=== PATIENT | male | born 1960 | race Caucasian/White ===

== ENCOUNTER → 2017-12-26 | Outpatient (CLI) | payer BC ==
[2017-12-26] VITALS (8 sets, daily range): BP systolic 115–132; BP diastolic 62–83
[~2017-12-26] VITALS: Ht 180.3 cm; Wt 95.3 kg
[~2017-12-26] MED LIST: AMITRIPTYLINE H25 M2 PO; AMLODIPINE BESYL5 M1 PO; APAP500 PO; ASPIR 8181 MG PO; BENTYL 20 MG TA20 M1 PO; CARVEDILOL12.5 MG PO; CIPRO500 MG PO; COREG25 MG PO; DEPAKOTE ER500 MG PO; EFFIENT10 MG PO; FLUOXETINE HCL40 MG PO; HYDROCODON-ACE1 EAC8 PO; LIPITOR20 MG PO; LISINOPRIL20 MG PO; NEURONTIN300 MG PO; NITROSTAT0.4 M1 SUBLING; NORVASC5 M1 PO; OMEPRAZOLE40 MG PO; RANEXA500 MG PO; REQUIP3 MG PO; ZOFRAN ODT4 MG PO
[2017-12-26 09:02] LABS: CALCIUM 9.4 mg/dL (8.5-10.1); CREATININE 1.1 mg/dL (0.6-1.3); POTASSIUM 3.7 mmol/L (3.5-5.1)
[2017-12-26 09:06] LABS: ALBUMIN 3.8 g/dL (3.4-5.0); TOTAL BILIRUBIN 0.7 mg/dL (<0.1-1.0); TOTAL PROTEIN 7.1 g/dL (6.4-8.2)
== END ==
LOC: M.CT 07:41
PROVIDERS: Radiology Diagnostic Radiology
DX: I25.10 Atherosclerotic heart disease of native coronary artery without angina pectoris (principal); I25.82 Chronic total occlusion of coronary artery; R06.09 Other forms of dyspnea; R07.9 Chest pain, unspecified

== ENCOUNTER → 2018-01-07 | Outpatient (CLI) | payer BC ==
--- NOTE | 2018-01-07 18:04 | 2DMMODE ---
[place] [address] 2 D/M-MODE ECHOCARDIOGRAM Name: RAVINDRARADHAMARVIN TERRY Room: [facility]#: [id number] Admission: 01/07/18 Attend Phys: Norberto Farrell, Discharge: Date of : 58 Date of Service: 01/07/18 1804 Report #: [id number] THIS REPORT FOR: //name// APPROVED REPORT Study performed: 01/07/2018 14:12:04 EXAM: Comprehensive 2D, Doppler, and color-flow Echocardiogram Patient Location: Out-Patient Status: routine BSA: 2.17 HR: 72 bpm BP: 148/100 mmHg Other Information Study Quality: Good Indications Dyspnea CAD Chest Pain 2D Dimensions LVEF(%): 66.06 (>50%) IVSd: 12.73 (7-11mm) LVOT Diam: 19.97 (18-24mm) LVDd: 42.86 mm PWd: 9.49 (7-11mm) Ascending Ao: 31.99 (22-36mm) LVDs: 27.39 (25-40mm) Aortic Root: 30.20 mm Cazares's LVEF: 66.06 % Volumes Left Atrial Volume (Systole) LA ESV Index: 14.10 mL/m2 Aortic Valve AoV Peak Hugo.: 1.28 m/s AO Peak Gr.: 6.59 mmHg LVOT Max P.80 mmHg AO Mean Gr.: 3.10 mmHg LVOT Mean P.65 mmHg LVOT Max V: 1.20 m/s AO V2 VTI: 21.81 cm LVOT Mean V: 0.74 m/s CRISTHIAN (VTI): 3.35 cm2 LVOT V1 VTI: 23.32 [place] [address] 2 D/M-MODE ECHOCARDIOGRAM Name: RADHA WAITE Room: [facility]#: [id number] Admission: 01/07/18 Attend Phys: Norberto Farrell, Discharge: Date of : 58 Date of Service: 01/07/18 1804 Report #: [id number] E/A Ratio: 0.62 MV Decel. Time: 294.22 ms MV E Max Hugo.: 0.56 m/s MV PHT: 85.32 ms MVA (PHT): 2.58 cm2 TDI E/Lateral E': 6.22 E/Medial E': 7.00 Medial E' Hugo.: 0.08 m/s Lateral E' Hugo.: 0.09 m/s Pulmonary Valve PV Peak Hugo.: 0.87 m/s PV Peak Gr.: 3.05 mmHg Tricuspid Valve RAP Estimate: 5.00 mmHg TR Peak Gr.: 18.30 mmHg RVSP: 23.30 mmHg PA Pressure: 23.30 mmHg Left Ventricle The left ventricle is normal size. There is normal LV segmental wall motion. There is normal left ventricular wall thickness. Left ventricular systolic function is normal. The left ventricular ejection fraction is within the normal range. LVEF is 60-65%. Grade I - abnormal relaxation pattern. Right Ventricle The right ventricle is normal size. The right ventricular systolic function is normal. Atria The left atrium size is normal. The right atrium size is normal. Aortic Valve The aortic valve is normal in structure. No aortic regurgitation is present. There is no aortic valvular stenosis. Mitral Valve Mild mitral annular calcification. Trace mitral regurgitation. No evidence of mitral valve stenosis. Tricuspid Valve The tricuspid valve is normal in structure. [place] [address] 2 D/M-MODE ECHOCARDIOGRAM Name: RADHA WAITE Room: [facility]#: [id number] Admission: 01/07/18 Attend Phys: Norberto Farrell, Discharge: Date of : 58 Date of Service: 01/07/18 1804 Report #: [id number] Pulmonic Valve The pulmonary valve is normal in structure. There is no pulmonic valvular regurgitation. Great Vessels The aortic root is normal in size. IVC is normal in size and collapses with >50% inspiration Pericardium There is no pericardial effusion. <Conclusion> The left ventricle is normal size. There is normal left ventricular wall thickness. Left ventricular systolic function is normal. The left ventricular ejection fraction is within the normal range. LVEF is 60-65%. Grade I - abnormal relaxation pattern. The right ventricle is normal size. The left atrium size is normal. The aortic valve is normal in structure. Mild mitral annular calcification. Trace mitral regurgitation. No evidence of mitral valve stenosis. The tricuspid valve is normal in structure. Mild tricuspid regurgitation. IVC is normal in size and collapses with >50% inspiration There is no pericardial effusion. There is normal LV segmental wall motion. <ELECTRONICALLY SIGNED> By: Redd Neil MD, FACC 01/07/181803 03 03 Redd Neil MD, FACC /INF
== END ==
LOC: M.CRD 13:36
DX: I07.1 Rheumatic tricuspid insufficiency (principal); I34.8 Other nonrheumatic mitral valve disorders; I25.10 Atherosclerotic heart disease of native coronary artery without angina pectoris

== ENCOUNTER → 2019-12-02 | Outpatient (CLI) | payer BC ==
--- NOTE | 2019-12-02 12:14 | 2DMMODE ---
[place] [address] 2 D/M-MODE ECHOCARDIOGRAM Name: RADHA WAITE Room: [facility]#: [id number] Admission: 12/02/19 Attend Phys: Norberto Farrell, Discharge: Date of : 58 Date of Service: 12/02/19 1212 Report #: [id number] THIS REPORT FOR: cc: Alejandro Boyd Brad DO Liston, Michael J. MD [facility] ~ APPROVED REPORT Study performed: 12/02/2019 11:07:30 EXAM: Comprehensive 2D, Doppler, and color-flow Echocardiogram Patient Location: Out-Patient BSA: 2.11 HR: 77 bpm BP: 131/77 mmHg Other Information Study Quality: Good Indications Dyspnea Chest Pain 2D Dimensions IVSd: 11.51 (7-11mm) LVOT Diam: 20.19 (18-24mm) LVDd: 40.76 mm PWd: 11.08 (7-11mm) Ascending Ao: 32.02 (22-36mm) LVDs: 24.53 (25-40mm) Aortic Root: 31.44 mm Volumes Left Atrial Volume (Systole) LA ESV Index: 22.40 mL/m2 Aortic Valve AoV Peak Hugo.: 1.28 m/s AO Peak Gr.: 6.59 mmHg LVOT Max P.38 mmHg AO Mean Gr.: 3.79 mmHg LVOT Mean P.03 mmHg LVOT Max V: 1.26 m/s AO V2 VTI: 28.00 cm LVOT Mean V: 0.79 m/s CRISTHIAN (VTI): 3.02 cm2 LVOT V1 VTI: 26.41 [place] [address] 2 D/M-MODE ECHOCARDIOGRAM Name: RADHA WAITE Room: [facility]#: [id number] Admission: 12/02/19 Attend Phys: Norberto Farrell, Discharge: Date of : 58 Date of Service: 12/02/19 1212 Report #: [id number] E/A Ratio: 0.97 MV Decel. Time: 180.26 ms MV E Max Hugo.: 0.83 m/s MV PHT: 52.28 ms MVA (PHT): 4.21 cm2 TDI E/Lateral E': 9.22 E/Medial E': 11.86 Medial E' Hugo.: 0.07 m/s Lateral E' Hugo.: 0.09 m/s Pulmonary Valve PV Peak Hugo.: 0.90 m/s PV Peak Gr.: 3.23 mmHg Tricuspid Valve RAP Estimate: 5.00 mmHg TR Peak Gr.: 20.45 mmHg RVSP: 25.45 mmHg PA Pressure: 25.45 mmHg Left Ventricle The left ventricle is normal size. There is normal LV segmental wall motion. There is normal left ventricular wall thickness. Left ventricular systolic function is normal. LVEF is 60-65%. Transmitral Doppler flow pattern suggests impaired LV relaxation. Right Ventricle The right ventricle is normal size. The right ventricular systolic function is normal. Atria Left atrium is mildly dilated. The right atrium size is normal. Aortic Valve The aortic valve is normal in structure. No aortic regurgitation is present. There is no aortic valvular stenosis. Mitral Valve Mild mitral annular calcification. Trace mitral regurgitation. No evidence of mitral valve stenosis. Tricuspid Valve The tricuspid valve is normal in structure. Trace tricuspid regurgitation. The RVSP is 30-35 [place] [address] 2 D/M-MODE ECHOCARDIOGRAM Name: RAVINDRARADHA Room: [facility]#: [id number] Admission: 12/02/19 Attend Phys: Norberto Farrell, Discharge: Date of : 58 Date of Service: 12/02/19 1212 Report #: [id number] The pulmonary valve is normal in structure. There is no pulmonic valvular regurgitation. Great Vessels The aortic root is normal in size. IVC is normal in size and collapses >50% with inspiration. Pericardium There is no pericardial effusion. <Conclusion> Trace tricuspid regurgitation. The RVSP is 30-35 mmHg. Trace mitral regurgitation. IVC is normal in size and collapses >50% with inspiration. <ELECTRONICALLY SIGNED> By: Blaise Perez MD, FACC 12/02/19 121 11 11 Blaise Perez MD, FACC /INF
--- NOTE | 2019-12-02 13:25 | CARDNUC ---
[place] [address] CARDIAC NUCLEAR IMAGING REPORT Name: RADHA WAITE Room: [facility]#: [id number] Admission: 12/02/19 Attend Phys: Norberto Farrell, Discharge: Date of : 58 Date of Service: 12/02/19 1323 Report #: [id number] THIS REPORT FOR: cc: Alejandro Boyd,Blaise Dan MD [facility] ~ APPROVED REPORT Imaging Protocol: Stress Tc-99m/Rest Tc-99m 1 day Study performed: 12/02/2019 08:00:00 Indication: Chest pain, Dyspnea, Dizziness, Palpitations. Patient Location: Out-Patient Stress Tech: Lola Rodriguez Stress Nurse: Lisandra Damon RN Ht: 5 ft 11 in Wt: 201 lbs BSA: 2.11 m2 BMI: 28.03 Medical History Medical History: Angina, CAD s/p [place], CAD s/p stent, Chronic total occlusion of carotid artery, Dizziness, PND, Palpitations, near syncope, Dyspnea, HTN, HLD, Past Smoker, Weakness/fatigue. Medications: Amlodipine, Atorvastatin, Carvedilol, Fenofibrate, Ranexa, Lisinopril, (?Diltiazem? patient unsure) Allergies: Compazine, Toradol. Cardiac Risk Factors: Age, FHX of CAD, HTN, Hyperlipidemia, SOB, Past Smoker, Chest pain, Palpitations. Previous Cardiac Procedures: Myocardial infarction, PCI. Pretest Chest Pain Characteristics: No chest pain Exercise History: Sedentary Physical Disabilities: Weakness/fatigue, dyspnea. Meds Held (24 hrs): Carvedilol. Resting Data Rest SPECT myocardial perfusion imaging was performed in supine position 30 minutes following the intravenous injection of 9.2 mCi of Tc-99m Sestamibi. Time of rest injection: 08:25 The images were gated to evaluate regional wall motion and calculate left ventricular ejection fraction. Administration Route: IV Administration Site: [place] [address] CARDIAC NUCLEAR IMAGING REPORT Name: RADHA WAITE Room: [facility]#: [id number] Admission: 12/02/19 Attend Phys: Norberto Farrell, Discharge: Date of : 58 Date of Service: 12/02/19 1323 Report #: [id number] Pharmacologic Stress Pharmacologic stress test was performed by injecting Regadenoson 0.4 mg IV push over 10-15 seconds immediately followed by the intravenous injection of 29.9 mCi of Tc-99m Sestamibi. Time of stress injection: 10:55 Administration Route: IV Administration Site: Left Heart Rate at time of stress injection: 106 bpm. Gated Stress SPECT was performed 40 minutes after stress injection. The images were gated to evaluate regional wall motion and calculate left ventricular ejection fraction. Prone imaging was performed. Stress Test Details Stress Test: Pharmacologic stress was paired with low level exercise. Reason for pharmacologic stress test: Weakness/Fatigue, Dyspnea.. 60 mg caffeine given for Nausea/Vomiting.. HR Max Heart Rate (APMHR): 160 bpm Resting HR: 67 bpm Target HR (85% APMHR): 136 bpm Max HR Achieved: 106 bpm % of APMHR: 66 Recovery HR: 80 bpm BP Resting BP: 131/77 mmHg Max BP: 233/91 mmHg Recovery BP: 184/91 mmHg ECG Resting ECG: Sinus Rhythm Stress ECG: Sinus Tachycardia ST Change: Horizontal ST depression Maximum ST Deviation: 0.5 mm Arrhythmia: None Recovery ECG: Sinus Rhythm Recovery ST Change: Horizontal ST depression Recovery ST Deviation: 0.5 mm Recovery Arrhythmia: None Clinical Reason for Termination: Completed protocol Stress Symptoms: Nausea, Emesis, Headache, Weakness., None, [place] [address] CARDIAC NUCLEAR IMAGING REPORT Name: RADHA WAITE Room: [facility]#: [id number] Admission: 12/02/19 Attend Phys: Norberto Farrell, Discharge: Date of : 58 Date of Service: 12/02/19 1323 Report #: [id number] Exercise duration: 4 min 00 sec Exercise capacity: 2.30 METs The patient tolerated Lexiscan infusion protocol without significant cardiac complaints. Nurse Comments A 59 year old male presented for a walking Lexiscan r/t chest pain, dyspnea, dizziness, palpitations. Test tolerated with some N/V requiring 60 Mg IV caffeine during recovery, effective. Patient was escorted by staff to Nuclear Medicine for imaging. Patient exhibited continued HTN but stated he felt better at that time. Patient was educated to take his B/P medications promptly upon returning home. Stress ECG Conclusion Baseline twelve-lead EKG shows sinus rhythm with some subtle T wave inversion in the inferolateral leads. EKGs obtained during and post Lexiscan infusion show sinus rhythm and sinus tachycardia with 0.[address] segment depression noted in the anterolateral leads. There were no significant stress-induced arrhythmias. Study Quality Study: Fair Artifact: Moderate Diaphragmatic artifact Study Data At rest, the left ventricular ejection fraction was 77%.. Post stress, the left ventricular ejection was 76%.. TID = 0.96. Perfusion Perfusion images obtained in the supine position show a large in size moderate intensity defect involving the inferior wall that resolves only partially with post-rest prone imaging. No reversible defects are identified. Review of the raw data suggest diaphragmatic attenuation artifact. Wall Motion Normal left ventricular wall motion. Nuclear Conclusion ECG Findings: non-diagnostic Clinical Findings: negative for ischemia Nuclear Findings: negative for ischemia Exercise Capacity: not assessed Left Ventricular Function: [place] [address] CARDIAC NUCLEAR IMAGING REPORT Name: RAVINDRARADHAMARVIN TERRY Room: [facility] Da Silva#: [id number] Admission: 12/02/19 Attend Phys: Norberto Farrell, Discharge: Date of : 58 Date of Service: 12/02/19 1323 Report #: [id number] Risk Study: low Perfusion images show evidence of diaphragmatic attenuation artifact. There were no reversible defects identified. Global LV systolic function is normal on gated studies without wall motion abnormality. This is a low risk study. <Conclusion> Baseline twelve-lead EKG shows sinus rhythm with some subtle T wave inversion in the inferolateral leads. EKGs obtained during and post Lexiscan infusion show sinus rhythm and sinus tachycardia with 0.[address] segment depression noted in the anterolateral leads. There were no significant stress-induced arrhythmias. <ELECTRONICALLY SIGNED> By: Blaise Perez MD, FACC 12/02/19 1323 1323 1323 Blaise Perez MD, FACC /INF
== END ==
LOC: M.CRD 11-18 16:12 → M.NUC 07:55 → M.CRD 09:00 → M.NUC 14:00 → M.CRD 12-03 09:00
DX: I34.0 Nonrheumatic mitral (valve) insufficiency (principal); I25.10 Atherosclerotic heart disease of native coronary artery without angina pectoris; R06.09 Other forms of dyspnea; R07.9 Chest pain, unspecified; I25.2 Old myocardial infarction; I25.82 Chronic total occlusion of coronary artery; Z98.61 Coronary angioplasty status

== ENCOUNTER → 2020-08-06 | Outpatient (CLI) | payer BC ==
[2020-08-06] VITALS (11 sets, daily range): BP systolic 104–137; BP diastolic 67–88
[~2020-08-06] VITALS: Ht 180.3 cm; Wt 95.3 kg
[~2020-08-06] MED LIST changes: +ASPIRIN325 PO; +CARVEDILOL25 MG PO; +DILTIAZEM ER180 M2 PO; +FENOFIBRATE160 MG PO; -FLUOXETINE HCL40 MG PO; +PLAVIX 75 MG TA75 MG PO; +PROZAC20 M1
[2020-08-06 08:19] LABS: HEMATOCRIT 41.4 % (42.0-52.0); HEMOGLOBIN 14.1 gm/dL (14.0-18.0); MCH 30.5 pg (26.0-34.0); MCHC 34.2 g/dL (28.0-37.0); MCV 89.2 fL (80.0-100.0); MPV 9.2 fl. (7.2-11.1); RBC 4.64 mil/uL (4.50-6.00); WBC 9.9 thou/uL (4.0-11.0)
[2020-08-06 08:25] LABS: ANION GAP 12 mmol/L (7-16); BUN 19 mg/dL (7-18); CALCIUM 9.2 mg/dL (8.5-10.1); CHLORIDE 105 mmol/L (98-107); CO2 25 mmol/L (21-32); CREATININE 1.3 mg/dL (0.6-1.3); GLUCOSE 115 mg/dL (70-99); POTASSIUM 3.7 mmol/L (3.5-5.1); SODIUM 142 mmol/L (136-145)
[2020-08-06 08:29] LABS: ALBUMIN 3.8 g/dL (3.4-5.0); ALKALINE PHOSPHATASE 89 U/L (46-116); APTT 22.6 Seconds (25.0-31.3); CHOLESTEROL 150 mg/dL (<200); HDL CHOLESTEROL 31 mg/dL (>40); LDL CHOLESTEROL 84 mg/dL (<100); SGOT 16 U/L (15-37); SGPT 28 U/L (30-65); TC:HDL 4.8 Ratio (Not establshd); TOTAL BILIRUBIN 0.4 mg/dL (<0.1-1.0); TOTAL PROTEIN 6.9 g/dL (6.4-8.2); TRIGLYCERIDE 177 mg/dL (<150); VLDL 35 mg/dL (<40)
[2020-08-06 08:30] LABS: SERUM ASSESSMENT Clear
[2020-08-06 13:21] LABS: HEMOGLOBIN 13.2 gm/dL (14.0-18.0); MCH 31.1 pg (26.0-34.0); MCHC 34.6 g/dL (28.0-37.0); MPV 8.7 fl. (7.2-11.1); RBC 4.23 mil/uL (4.50-6.00); WBC 7.3 thou/uL (4.0-11.0)
[2020-08-06 13:40] LABS: ANION GAP 6 mmol/L (7-16); BUN 16 mg/dL (7-18); CALCIUM 8.6 mg/dL (8.5-10.1); CHLORIDE 109 mmol/L (98-107); CO2 26 mmol/L (21-32); CREATININE 1.1 mg/dL (0.6-1.3); GLUCOSE 102 mg/dL (70-99); SODIUM 141 mmol/L (136-145); TROPONIN-I LEVEL <0.06 ng/mL (<0.06)
--- NOTE | 2020-08-06 13:46 | EKG ---
[place] [address] ELECTROCARDIOGRAM REPORT Name: RADHA WAITE EDNIKOS Room: [facility]#: [id number] Admission: 08/06/20 Attend Phys: Norberto Farrell, Discharge: Date of : 58 Date of Service: 08/06/20 1229 Report #: [id number] THIS REPORT FOR: //name// [facility] Test Date: 2020-08-06 Test Time: 12:29:32 Pat Name: RADHA WAITE Department: Room: Gender: Farm Hand: : 1960 Requested By: Karson Aleman Order Number: [id number] Aureliano MD: Karson Aleman Measurements Intervals [place] Rate: 57 P: 18 WV: 147 QRS: 38 QRSD: 106 T: 1 QT: 457 QTc: 445 Interpretive Statements Sinus rhythm Abnormal R-wave progression, early transition Compared to ECG 12/04/2014 08:51:09 no change Electronically Signed On 08-06-2020 13:46:14 MACHINE PECAN GATHERER by Karson Aleman [email or web address] <ELECTRONICALLY SIGNED> By: Karson Aleman MD, [facility] 08/06/20 1346 1229 1229 Karson Aleman MD, [facility] /EPI
--- NOTE | 2020-08-06 17:31 | CARD ---
[address] [address] CARDIAC CATH REPORT Name: RADHA WAITE Room: [facility] Maryann.#: [id number] Admission: 08/06/20 Attend Phys: Norberto Farrell MD, Discharge: Date of : 58 Report #: [id number] THIS REPORT FOR: cc: Oliver,Alejandro DO Mouse,Alejandro DO ~ Karson Aleman MD [facility] APPROVED REPORT Study performed: 08/06/2020 08:47:41 Patient Details Patient Status: Out-Patient Room #: The patient is a 59 year-old male Event Personnel Karson Aleman Scientific Systems Analyst, Renata Jurado Gang Hemstitching Machine Operator, Carlos Catherine RTR Scrub, Shakira Smalls RTR Monitor, Alejandro Pierre BOILER INSPECTOR Monitor Procedures Performed Art Access - R radial artery Left Heart Cath w/or w/o Coronaries [id number] [facility] [address] Place w/wo Plasty Single DIAG [id number] Indication Dyspnea, Chest pain Risk Factors Arterial Hypertension, Hypercholesterolemia, Coronary Artery Disease, Tobacco History () Previous Procedures/Diagnoses Previous PCI Admission/Lab Medications/Medications given during procedure Glycoprotein IllbIlla Inhibitors, Heparin Unfract. Procedure Narrative The patient was brought electively to the Cardiac Catheterization Laboratory and was prepped and draped in a sterile manner. The right wrist was infiltrated with 1% Lidocaine subcutaneous anesthesia. A Slender Glidesheath sheath was inserted into the right radial artery. Coronary angiography was performed [place] [address] CARDIAC CATH REPORT Name: RADHA WAITE Room: [facility]#: [id number] Admission: 08/06/20 Attend Phys: Norberto Farrell MD, Discharge: Date of : 58 Report #: [id number] catheters. The right coronary system was accessed and visualized with a JR4 catheter. The left coronary system was accessed and visualized with a JL4 catheter. The left ventricle was accessed and visualized with a Pig catheter. Left ventricular/Aortic Valve gradient assessed via catheter pullback. Left ventriculogram was performed in JIMENEZ projection. Closure device was deployed with a 6 Fr vascband. The patient tolerated the procedure well and there were no complications associated with the procedure. There was no hematoma. Intraoperative Conscious Sedation Sedation start time: 929 Case end Time: 1009 Fentanyl 25 mcg Versed 2 mg Fluoro Time: 6.0 minutes Dose: DAP 54947 cGycm2 1582 1582 mGy Contrast Type and Amount: Visipaque 140 ml Coronary Angiography The patient's coronary anatomy is co- dominant. Diagnostic Cath Left Main 0% stenosis LAD stent in the mid lad had 0% stenosis, but there was a 60% stenosis noted beyond the stent Diagonal 2 medium sized vessel with a mid 80% stenosis Circumflex distal circumflex appeared chronically occluded and filled by both bridging and contralateral collateralls from the RCA OM1 40% proximal stenosis Right Coronary 30% mid stenosis Left Ventriculography The left ventricular ejection fraction is estimated to be 60-65%. Left ventricular wall motion abnormalities are not present. There is no mitral insufficiency. Hemodynamics The aortic pressure is 97/61 mmHg with a mean of 78 mmHg. The left ventricular pressure is 90/10 mmHg with a mean of mmHg. The left ventricular end diastolic pressure is 16 mmHg. There was no gradient across the aortic valve upon pullback. Pullback from the left ventricle to the aorta revealed no gradient across [place] [address] CARDIAC CATH REPORT Name: RADHA WAITE Room: [facility]#: [id number] Admission: 08/06/20 Attend Phys: Norberto Farrell MD, Discharge: Date of : 58 Report #: [id number] PCI Technique Lesion Anticoagulation was achieved with Heparin. bolus of IV aggrastat given Percutaneous coronary intervention was performed on the second diagnonal branch segment. The lesion stenosis prior to intervention was 80% with KARIN 3 flow. A 6FR XB LAD 3.0 100CM Guide Catheter was used to engage the lm ostium. A IG: BMW 190cm Interventional Guidewire was used to cross the lesion. BALLOON DILATION A Balloon catheter NC Trek RX 2.0 X 12 was inserted and inflated up to 18.00atm for 14seconds. Repeat angiography revealed the following post-dilatation results: 40% stenosis. Additional Inflation: 12.00atm for 13seconds. STENT DEPLOYMENT A drug-eluting stent [place] RX Stent 2.89X67lx was inserted and inflated up to 15.00atm for 14seconds. Repeat angiography revealed the following post-stent deployment results: 0% stenosis. Additional Inflation: 15.00atm for 14seconds. Final angiography reveals 0 % stenosis with KARIN 3 flow. Conclusion 1. no restenosis noted of a stent in the mid lad, although there was a 60% stenosis noted beyond the stent. 2. 80% stenosis noted in the second diagonal branch of the lad 3. chronic occlusion of the distal circumflex that filled by collaterals. 4. successful placement of a drug eluting in the diagonal branch 5. LVEF 60-65% Recommendations Cardiac Rehabilitation Referral Aggressive Medical Therapy Medications Administered Clopidogrel <ELECTRONICALLY SIGNED> By: Karson Aleman MD, [facility] 08/06/20 1730 29 1730Dawang Aleman MD, FACC /INF
== END | disposition home or self-care (01) ==
LOC: M.CL 07:34
PROVIDERS: Internal Medicine Cardiovascular Disease; ATTEND Internal Medicine
DX: R07.9 Chest pain, unspecified (principal); R06.00 Dyspnea, unspecified; I25.10 Atherosclerotic heart disease of native coronary artery without angina pectoris; I10 Essential (primary) hypertension; E78.00 Pure hypercholesterolemia, unspecified; I25.2 Old myocardial infarction; G43.909 Migraine, unspecified, not intractable, without status migrainosus; Z98.890 Other specified postprocedural states; Z79.899 Other long term (current) drug therapy; Z20.822 Contact with and (suspected) exposure to COVID-19; Z87.891 Personal history of nicotine dependence; Z85.038 Personal history of other malignant neoplasm of large intestine; Z88.8 Allergy status to other drugs, medicaments and biological substances

== ENCOUNTER → 2020-11-03 | Outpatient (CLI) | payer BC ==
[~2020-11-03] MED LIST changes: +CARDIZEM120 MG PO; +LIPITOR80 MG PO; +NORVASC5 MG PO; +ZETIA10 MG PO
== END ==
LOC: M.LAB 09:04
PROVIDERS: ATTEND Internal Medicine
DX: R06.02 Shortness of breath (principal); R06.00 Dyspnea, unspecified

== ENCOUNTER 2020-11-10 09:11 | Observation (INO) | payer BC ==
[~2020-11-10] VITALS: Ht 182.9 cm; Wt 92.1 kg
[2020-11-10] VITALS (7 sets, daily range): BP systolic 119–169; BP diastolic 74–92
--- NOTE | ~2020-11-10 | H ---
[address] [address] HISTORY AND PHYSICAL Name: RADHA WAITE Room: [address] Patricio AgrawalRWander#: [id number] Admission: 11/10/20 Attend Phys: Norberto Farrell MD, Discharge: 11/11/20 Date of : 58 Report #: [id number] THIS REPORT FOR: cc: Alejandro Boyd Brad DO [facility],Medical Records Staff ~ Please refer to the History and Physical performed in the physician's office. By: 1328Medical Records Staff TOMY /BERENICE
[2020-11-10 10:13] LABS: HEMATOCRIT 42.5 % (42.0-52.0); HEMOGLOBIN 14.6 gm/dL (14.0-18.0); MCH 30.6 pg (26.0-34.0); MCHC 34.4 g/dL (28.0-37.0); MCV 89.1 fL (80.0-100.0); MPV 8.5 fl. (7.2-11.1); RBC 4.77 mil/uL (4.50-6.00); RDW-CV 13.4 % (10.5-14.5); WBC 8.7 thou/uL (4.0-11.0)
[2020-11-10 10:22] LABS: ANION GAP 12 mmol/L (7-16); BUN 15 mg/dL (7-18); CHLORIDE 105 mmol/L (98-107); CO2 26 mmol/L (21-32); CREATININE 1.3 mg/dL (0.6-1.3); GLUCOSE 80 mg/dL (70-99); POTASSIUM 3.6 mmol/L (3.5-5.1); SODIUM 143 mmol/L (136-145)
[2020-11-10 10:25] LABS: APTT 24.5 Seconds (25.0-31.3); INR 1.1; PROTIME 11.4 Seconds (9.20-11.50)
[2020-11-10 10:26] LABS: ALKALINE PHOSPHATASE 96 U/L (46-116); CHOLESTEROL 132 mg/dL (<200); HDL CHOLESTEROL 40 mg/dL (>40); LDL CHOLESTEROL 63 mg/dL (<100); SGOT 25 U/L (15-37); SGPT 33 U/L (30-65); TC:HDL 3.3 Ratio (Not establshd); TOTAL BILIRUBIN 0.6 mg/dL (<0.1-1.0); TOTAL PROTEIN 7.4 g/dL (6.4-8.2); TRIGLYCERIDE 147 mg/dL (<150); VLDL 29 mg/dL (<40)
[2020-11-10 10:31] LABS: SERUM ASSESSMENT Clear
--- NOTE | 2020-11-10 14:16 | CARD ---
[address] [address] CARDIAC CATH REPORT Name: RADHA WAITE Room: [address] M.RWander#: [id number] Admission: 11/10/20 Attend Phys: Norberto Farrell MD, Discharge: Date of : 58 Report #: [id number] THIS REPORT FOR: cc: Alejandro Boyd Brad DO Holkins, John M. MD [facility] ~ APPROVED REPORT Study performed: 11/10/2020 10:52:36 Patient Details Patient Status: Out-Patient Room #: The patient is a 60 year-old male Event Personnel Alejandro Pierre Reeves, Adam RTR Monitor, Redd Neil Business Objects, Nataly Mcgrath RN paid search marketing analyst Performed Left Heart Cath w/or w/o Coronaries [id number] [facility] [address] Place w/wo Plasty Addl BR DIAG [address] w/wo Plasty Single LAD 206455 Hemostasis w/ Angioseal Indication Unstable angina Risk Factors Hypercholesterolemia, Hypertension Previous Procedures/Diagnoses Previous PCI Admission/Lab Medications/Medications given during procedure Fentanyl IV 25 mcg, Midazolam (Versed) IV 2 mg, Lidocaine Subcut 20 ml, Nitroglycerin IC 150 mcg, Angiomax IV 15 ml, Angiomax IV 34.9 ml per hr, Plavix PO 600 mg, Aspirin PO 162 mg Procedure Narrative The patient was brought electively to the Cardiac Catheterization Laboratory and was prepped and draped in a sterile manner. The right femoral was infiltrated with 2% Lidocaine subcutaneous anesthesia. A Beggs 6 FR sheath was inserted into the right femoral artery. Coronary angiography was performed using coronary diagnostic catheters. The right coronary system [place] [address] CARDIAC CATH REPORT Name: RADHA WAITE Room: [address]#: [id number] Admission: 11/10/20 Attend Phys: Norberto Farrell MD, Discharge: Date of : 58 Report #: [id number] a Diagnostic JR4 6Fr catheter. The left coronary system was accessed and visualized with a Diagnostic JL4 6Fr catheter. The left ventricle was accessed and visualized with a Diagnostic Pigtail 6Fr catheter. Left ventricular/Aortic Valve gradient assessed via catheter pullback. Pre-demployment femoral angiogram was performed . Closure device was deployed with a 6 Fr Angioseal. The patient tolerated the procedure well and there were no complications associated with the procedure. There was no hematoma. Intraoperative Conscious Sedation Sedation start time: 1118 Case end Time: 1217 Fentanyl 50 mcg Versed 4 mg Fluoro Time: 15.6 minutes Dose: DAP 926662 cGycm2 2134.05 mGy Contrast Type and Amount: Visipaque 280 ml Diagnostic Cath Left Main 0% narrowing LAD 30% proximal LAD narrowing with 75% mid LAD stenosis; there was 90% ostial first diagonal stenosis with a widely patent mid first diagonal stent Circumflex 100% chronic mid circumflex occlusion with left to left collaterals filling the distal circumflex Right Coronary 30% mid and distal narrowing of the dominant right coronary artery Left Ventriculography Left Ventriculography was not performed. Hemodynamics The aortic pressure is 132/62 mmHg with a mean of 70 mmHg. The left ventricular pressure is 130/0 mmHg with a mean of mmHg. The left ventricular end diastolic pressure is 6 mmHg. There was no gradient across the aortic valve upon pullback. PCI Technique Lesion Anticoagulation was achieved with Angiomax. Percutaneous coronary intervention was performed on the first diagnonal branch segment. The lesion stenosis prior to intervention was 90% with KARIN flow. A 6F XB LAD 3.5 Guide Catheter was used to engage the Left ostium. A IG: ProwaterFlex 180CM Interventional Guidewire was [place] [address] CARDIAC CATH REPORT Name: RADHA WAITE Room: [address]#: [id number] Admission: 11/10/20 Attend Phys: Norberto Farrell MD, Discharge: Date of : 58 Report #: [id number] STENT DEPLOYMENT A drug-eluting stent [place]rett RX Stent 2.0X8mm was inserted and inflated up to 10.00atm for 13seconds. Additional Inflation: 14.00atm for 12seconds. Additional Inflation: 12.00atm for 8seconds. Final angiography reveals 10 % stenosis with KARIN 3 flow. PCI Technique Lesion 2 Percutaneous Coronary Intervention was performed on the mid left anterior descending artery segment. The lesion stenosis prior to intervention was 75% with KARIN 3 flow. A 6F XB LAD 3.5 Guide Catheter was used to engage the Left ostium. A IG: BMW 190cm Interventional Guidewire was used to cross the lesion. Balloon Dilation A Balloon catheter NC Trek RX 2.25 X 8 was inserted and inflated up to 14.00atm for 11seconds. Additional Inflation: 16.00atm for 8seconds. Stent Deployment A drug-eluting stent [place] RX Stent 2.50Q63mh was inserted and inflated up to 12.00atm for 13seconds. Additional Inflation: 16.00atm for 12seconds. Additional Inflation: 18.00atm for 11seconds. Final angiography reveals 0 % stenosis with KARIN 3 flow. Comments The PCI was technically complex by virtue of the LAD/ diagonal bifurcation disease requiring complex wiring with stenting of both limbs of the bifurcation. Conclusion 1. Significant coronary artery disease characterized by the following: A 30% proximal LAD narrowing with 75% focal mid LAD stenosis and 90% ostial first diagonal stenosis B 100% chronic total occlusion of the mid circumflex with left to left collaterals filling the distal circumflex C large dominant right coronary artery with 30% [place] [address] CARDIAC CATH REPORT Name: RADHA WAITE MARA Room: [address] M.RWander#: [id number] Admission: 11/10/20 Attend Phys: Norberto Farrell MD, Discharge: Date of : 58 Report #: [id number] 2. Normal left-sided hemodynamic study 3. Successful PCI with deployment of drug-eluting stents at the sites of 90% ostial first diagonal and 75% mid LAD stenosis with 10 and 0% residual narrowings and KARIN-3 flow to the distal circulation Recommendations Cardiac Risk Reduction Program Aggressive Medical Therapy Medications Administered Aspirin (any) Clopidogrel Diagnostic Cath Approved by: Redd Neil MD Date/Time: 11/10/2020 14:13:48 <ELECTRONICALLY SIGNED> By: Redd Neil MD, [facility] 11/10/20 1416 1416 1416Redd Neil MD, FACC /INF
--- NOTE | 2020-11-10 14:28 | EKG ---
[place] [address] ELECTROCARDIOGRAM REPORT Name: RADHA WAITE Room: [address] M.R.#: [id number] Admission: 11/10/20 Attend Phys: Norberto Farrell, Discharge: Date of : 58 Date of Service: 11/10/20 1017 Report #: [id number] THIS REPORT FOR: //name// [facility] Test Date: 2020-11-10 Test Time: 10:17:28 Pat Name: RADHA WAITE Department: Room: [facility] Gender: M Padder Cushion: LÓPEZ : 1960 Requested By: Redd Neil Order Number: [id number] Aureliano MD: Redd Neil Measurements Intervals [place] Rate: 68 P: 42 MD: 154 QRS: 37 QRSD: 103 T: 15 QT: 417 QTc: 444 Interpretive Statements Sinus rhythm Abnormal R-wave progression, early transition Borderline T abnormalities, anterior leads Compared to ECG 08/06/2020 12:29:32 T-wave abnormality now present Electronically Signed On 11-10-2020 14:28:37 CDT by Redd Neil [email or web address] <ELECTRONICALLY SIGNED> By: Redd Neil MD, [facility] 11/10/20 1428 1017 1017 Redd Neil MD, [facility] /EPI
--- NOTE | 2020-11-10 14:29 | EKG ---
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
--- NOTE | 2020-11-10 19:38 | NUR ---
I ASSUMED CARE OF THE PATIENT AT 1530 FROM THE ENGINEERING ASSISTANT. HE IS ALERT AND ORIENTED X4 AND IS BEDREST UNTIL 1815. REPORT WAS RECEIVED FROM POLA TA. HE IS ABLE TO VOID ON HIS OWN AT 1600 AND AVOIDS A CATHETER. DAUGHTER SPENDS SOME TIME AT THE BEDSIDE. APPETITE WAS GOOD FOR DINNER. RIGHT GROIN SITE IS C/D/I AND NO HEMATOMA OR BRUISING. IV FLUIDS ARE INFUSING. HOURLY ROUNDING IS COMPLETED AND PATIENT NEEDS ARE MET, PAIN IS DENIED. WILL CONTINUE TO MONITOR.
[2020-11-11] VITALS: BP 141/82
--- NOTE | 2020-11-11 02:01 | NUR ---
ASSUMED CARE OF PT AT 1900. PT IS ALERT AND ORIENTED. VSS. PERRLA. NO COMPLAINTS OF PAIN. PT IS IN SINUS RYTHM ON THE TELEMETRY. PT IS RESTING COMFORTABLY IN BED. RESPIRATIONS ARE EVEN AND NONLABORED. WILL CONTINUE TO MONITOR PT.
[2020-11-11 04:00] VITALS: BP 137/87
[2020-11-11 04:54] LABS: HEMATOCRIT 39.8 % (42.0-52.0); HEMOGLOBIN 13.7 gm/dL (14.0-18.0); MCH 30.8 pg (26.0-34.0); MCHC 34.4 g/dL (28.0-37.0); MCV 89.7 fL (80.0-100.0); MPV 8.4 fl. (7.2-11.1); RBC 4.43 mil/uL (4.50-6.00); RDW-CV 13.2 % (10.5-14.5)
[2020-11-11 05:17] LABS: ALBUMIN 3.6 g/dL (3.4-5.0); CALCIUM 8.6 mg/dL (8.5-10.1); CREATININE 1.1 mg/dL (0.6-1.3); POTASSIUM 3.4 mmol/L (3.5-5.1); TOTAL BILIRUBIN 0.5 mg/dL (<0.1-1.0); TOTAL PROTEIN 6.7 g/dL (6.4-8.2)
[2020-11-11 05:22] LABS: TROPONIN-I LEVEL 1.17 ng/mL (<0.06)
--- NOTE | 2020-11-11 09:22 | EKG ---
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: : 1960 Requested By: Redd Neil Order Number: [id number] Aureliano MD: Blaise Perez Measurements Intervals [place] Rate: 74 P: 38 NV: 156 QRS: 43 QRSD: 104 T: 20 QT: 418 QTc: 464 Interpretive Statements Sinus rhythm Abnormal R-wave progression, early transition Minimal ST depression, inferior leads Compared to ECG 11/10/2020 12:53:00 ST (T wave) deviation now present Electronically Signed On 11-11-2020 9:21:46 CDT by Blaise Perez [email or web address] <ELECTRONICALLY SIGNED> By: Blaise Perez MD, [facility] 11/11/20920 9 9 Blaise Perez MD, [facility] /EPI
[2020-11-11 11:27] VITALS: BP 146/85
--- NOTE | 2020-11-11 12:27 | NUR ---
Pt is A&O. Resides at home with . Independent. No DME. No hx of HH or SNF. Pt had heart cath yesterday. Anticipate dc today.
[2020-11-11] MEDS ORDERED: BAYER CHEWABLE81 MG PO (12:52)
[2020-11-11 12:56] VITALS: BP 146/85
--- NOTE | 2020-11-11 13:05 | NUR ---
ASSUMED PT CARE AT 0730. ASSESSMENT COMPLETED, PT IS A&OX4 FRIENDLY AND RESPONDS READILY. PT DENIES ANY CONCERNS AT THIS TIME. MEDICATIONS ADMINISTERED ORDERED NEW ORDER TO DISCHARGE PT TO HOME. DISCHARGE INSTRUCTIONS REVIEWED WITH PT WHO VERBALIZES UNDERSTANDING. PT TAKEN VIA WC BY NURSING STAFF TO MAIN ENTRANCE TO EXIT VIA CAR WITH DAUGHTER AT APPROX 1300. HEART MONITOR REMOVED AND IV DC'D.
--- NOTE | 2020-11-12 17:27 | D ---
[address] [address] DISCHARGE SUMMARY Name: RADHA WAITE Room: [address] Patricio Da Silva#: [id number] Admission: 11/10/20 Attend Phys: Norberto Farrell MD, Discharge: 11/11/20 Date of : 58 Report #: [id number] THIS REPORT FOR: cc: Alejandro Boyd Brad DO Holkins, John M. MD [facility] ~ DOC #: [id number] cc: Ramesh Farrell MD [facility] Redd Neil MD [facility] DATE OF DISCHARGE: 11/11/2020 FINAL DISCHARGE DIAGNOSES: 1. Unstable angina. 2. Coronary artery disease. 3. History of prior myocardial infarction. 4. Hypertension. 5. Hyperlipidemia. 6. History of syncope. 7. Status post PCI to the LAD and diagonal. HOSPITAL COURSE: The patient is a pleasant 60-year-old male with hypertension and tobacco habituation. He had prior myocardial infarction, underwent PCI to a diagonal branch of the LAD. He continued to have chest pain compatible with angina following an unstable course and presented to Dr. Farrell in this context. He has underlying hypertension and hyperlipidemia. Given the recurrent angina following a clinically unstable pattern, he underwent recatheterization on 11/10/2020 which revealed 90% ostial first diagonal stenosis with 80% mid LAD narrowing. I performed PCI to the first ostium of the first diagonal, deploying one 2.0 x 8 mm Everett drug-eluting stent with a 10% residual narrowing. I placed one 2.25 x 22 mm [place] drug-eluting stent in the mid LAD with 0% residual narrowing and KAIRN 3 flow to the distal vessel. Troponin magnolai minimally to 1.17. He did well post-procedurally without recurrent chest discomfort. LABORATORY DATA: On 11/11/2020 revealed sodium 143, potassium 3.4, BUN 10, creatinine 1.1, glucose 118. Hemoglobin 13.7, white blood cell count 600 with 188,000 platelets. DISCHARGE MEDICATIONS: He was discharged to home on the following medications: Prozac 20 mg b.i.d., carvedilol 25 mg b.i.d., fenofibrate 160 mg daily, clopidogrel 75 mg daily, atorvastatin 80 mg at bedtime, amlodipine 5 mg daily, [place] [address] DISCHARGE SUMMARY Name: RADHA WAITE Room: [address] Avinash#: [id number] Admission: 11/10/20 Attend Phys: Norberto Farrell MD, Discharge: 11/11/20 Date of : 58 Report #: [id number] diltiazem extended release 120 mg daily, Zetia 10 mg daily, omeprazole 40 mg daily and ranolazine 500 mg b.i.d. He is scheduled to return to see Dr. Farrell on 11/24/2020. Therefore, the patient is discharged home in stable condition on the aforementioned medications with followup as related above. Redd Neil MD [facility] JMH/BOBBY <ELECTRONICALLY SIGNED> By: Redd Neil MD, [facility] 11/12/20 1727 1202 1243Jopepe Neil MD, [facility] /nt
== END 2020-11-11 13:15 | disposition home or self-care (01) ==
LOC: M.CL 09:11 → M.TBA-CV 12:06 → M.2W 12:06
PROVIDERS: ADMIT Internal Medicine; ATTEND Internal Medicine
DX: I25.110 Atherosclerotic heart disease of native coronary artery with unstable angina pectoris (principal); Z20.822 Contact with and (suspected) exposure to COVID-19; I10 Essential (primary) hypertension; E78.5 Hyperlipidemia, unspecified; I25.2 Old myocardial infarction; R55 Syncope and collapse; Z79.899 Other long term (current) drug therapy

== ENCOUNTER 2021-03-12 11:48 | Emergency (ER) | payer BC ==
[~2021-03-12] VITALS: Ht 182.9 cm; Wt 81.7 kg
[~2021-03-12 11:48] MED LIST changes: +BAYER CHEWABLE81 MG PO
[2021-03-12] MEDS ORDERED: CARVEDILOL25 MG PO (11:53)
[2021-03-12] MEDS ORDERED: NORVASC5 MG PO (11:53)
[2021-03-12] MEDS ORDERED: ZETIA10 MG PO (11:53)
[2021-03-12] MEDS ORDERED: PLAVIX 75 MG TA75 MG PO (11:53)
[2021-03-12] MEDS ORDERED: IMDUR 30 MG TAB30 M1 PO (11:54)
[2021-03-12] MEDS ORDERED: FENOFIBRATE160 MG PO (11:54)
[2021-03-12] MEDS ORDERED: RANEXA1000 MG PO (11:54)
[2021-03-12] MEDS ORDERED: PROZAC20 M1 PO (11:54)
[2021-03-12] MEDS ORDERED: OMEPRAZOLE40 MG PO (11:54)
[2021-03-12] MEDS ORDERED: ZESTRIL40 MG PO (11:55)
[2021-03-12] MEDS ORDERED: HYDROCODON-ACE1 EAC7 PO (11:55)
[2021-03-12 12:15] LABS: ABSOLUTE BASOPHILS 0.1 thou/uL (0.0-0.2); ABSOLUTE EOSINOPHILS 0.1 thou/uL (0.0-0.7); ABSOLUTE MONOCYTES 0.9 thou/uL (0.0-1.2); ABSOLUTE NEUTROPHILS 5.1 thou/uL (1.6-8.1); BASOPHILS 1.4 %; EOSINOPHILS 1.6 %; HEMATOCRIT 41.4 % (42.0-52.0); HEMOGLOBIN 14.5 gm/dL (14.0-18.0); LYMPHOCYTES 24.3 %; MCH 30.6 pg (26.0-34.0); MCV 87.4 fL (80.0-100.0); MONOCYTES 10.6 %; MPV 8.3 fl. (7.2-11.1); NUCLEATED RBCS 0 /100WBC; PLATELET COUNT* 214 thou/uL (150-400); POLYS 62.1 %; RBC 4.73 mil/uL (4.50-6.00); WBC 8.2 thou/uL (4.0-11.0)
[2021-03-12 12:24] LABS: CALCIUM 9.1 mg/dL (8.5-10.1); CREATININE 1.5 mg/dL (0.6-1.3)
[2021-03-12 12:28] LABS: ALBUMIN 3.8 g/dL (3.4-5.0); TOTAL BILIRUBIN 0.6 mg/dL (<0.1-1.0); TOTAL PROTEIN 6.7 g/dL (6.4-8.2)
--- NOTE | 2021-03-12 12:41 | EKG ---
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: [facility] : 1960 Requested By: Jean Claude Storey Order Number: [id number] MD: Karson Aleman Measurements Intervals [place] Rate: 58 P: 54 SC: 155 QRS: 42 QRSD: 128 T: 41 QT: 486 QTc: 478 Interpretive Statements Sinus rhythm early transition Nonspecific intraventricular conduction delay Compared to ECG 11/11/2020 08:10:45 no change Electronically Signed On 03-12-2021 12:41:12 CDT by Karson Aleman [email or web address] <ELECTRONICALLY SIGNED> By: Karson Aleman MD, [facility] 03/12/21 1241 1202 1202 Karson Aleman MD, [facility] /EPI
[2021-03-12 15:35] LABS: URINE BILIRUBIN NEGATIVE (Negative); URINE BLOOD NEGATIVE (Negative); URINE CLARITY CLEAR; URINE COLOR YELLOW; URINE GLUCOSE-RANDOM NEGATIVE (Negative); URINE KETONES NEGATIVE (Negative); URINE LEUKOCYTES-REFLEX NEGATIVE (Negative); URINE NITRITE-REFLEX NEGATIVE (Negative); URINE PROTEIN NEGATIVE (Negative); URINE UROBILINOGEN 0.2 E.U./dl (0.2-1.0)
[2021-03-12 15:54] VITALS: BP 141/88
--- NOTE | 2021-03-13 10:34 | EKG ---
[place] [address] ELECTROCARDIOGRAM REPORT Name: RADHA WAITE EDNIKOS Room: [facility]#: [id number] Admission: 03/12/21 Attend Phys: Discharge: 03/12/21 Date of : 58 Date of Service: 03/12/21 1448 Report #: [id number] THIS REPORT FOR: //name// [facility] ED Test Date: 2021-03-12 Test Time: 14:48:21 Pat Name: RADHA WAITE Department: Room: Gender: Intake Man: [facility] : 1960 Requested By: Jean Claude Storey Order Number: [id number] MD: Karson Aleman Measurements Intervals [place] Rate: 69 P: 42 [place]: 159 QRS: 28 QRSD: 134 T: 29 QT: 458 QTc: 491 Interpretive Statements Sinus rhythm Nonspecific intraventricular conduction delay Abnormal inferior Q waves Compared to ECG 03/12/2021 12:02:55 no change Electronically Signed On 03-13-2021 10:33:59 CDT by Karson Aleman [email or web address] <ELECTRONICALLY SIGNED> By: Karson Aleman MD, [facility] 03/13/21 1033 1448 1448 Karson Aleman MD, [facility] /EPI
== END 2021-03-12 15:55 | disposition home or self-care (01) ==
LOC: M.ERS 11:48
PROVIDERS: Emergency Medicine Emergency Medical Services
DX: I95.1 Orthostatic hypotension (principal); Z20.822 Contact with and (suspected) exposure to COVID-19; R53.1 Weakness; R53.83 Other fatigue; I10 Essential (primary) hypertension; I25.2 Old myocardial infarction; G43.909 Migraine, unspecified, not intractable, without status migrainosus; F17.210 Nicotine dependence, cigarettes, uncomplicated; Z90.89 Acquired absence of other organs; Z85.038 Personal history of other malignant neoplasm of large intestine; Z79.899 Other long term (current) drug therapy; Z88.6 Allergy status to analgesic agent; Z88.8 Allergy status to other drugs, medicaments and biological substances; Z95.5 Presence of coronary angioplasty implant and graft